=== PATIENT | male | born 1950 | race Caucasian/White ===

== ENCOUNTER 2017-03-04 10:04 | Day surgery (SDC) | payer OTHER ==
--- NOTE | 2017-03-03 12:27 | PREOPHP ---
DATE OF ADMISSION: 03/04/2017 HISTORY OF PRESENT ILLNESS: A 66-year-old male patient initially seen in this office in 06/2015, a long history of heavy smoking and hoarseness, was noted to have a possible laryngeal tumor. 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 The patient was not considered a surgical candidate and was treated with chemotherapy and radiation therapy with good results. He h as been followed periodically. A possible recurrence of carcinoma was noted in 08/2016 and a repeat direct microscopic laryngoscopy and biopsy were performed without evidence of recurrent cancer at t hat time. Intercurrently, the patient had a CAT scan of the larynx performed 11/2016 with poorly de fined soft tissue thickening involving the supraglottic larynx in the area of the left aryepiglottic fold and possible suspicion of diagnosis of recurrent carcinoma. Intercurrently, the patient was a lso seen and treated for a possible lung lesion. 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 The patient is now readmitted to the [facility] for repeat direct microscopic laryngoscopy and possible biopsy. ALLERGIES: PENICILLIN. DAILY MEDICATIONS: Metformin. MEDICAL CONDITIONS: Diabetes. PRIOR SURGERIES: See HPI. CLOTTING DISORDERS, FAMILY HISTORY, REVIEW OF SYSTEMS: Negative. HABITS: Alcohol: None currently. PHYSICAL EXAMINATION: GENERAL: This reveals a somewhat emaciated male patient in no acute distress. HEAD: Normocephalic. No masses or deformities. EARS AND TYMPANIC MEMBRANES: Normal. NOSE: Clear. OROPHARYNX: Dentition is in poor condition, and by endoscopic examination demonstrates thickening o f the left aryepiglottic fold. NECK: Clear. CHEST: Clear to P and A. HEART: Regular sinus rhythm without murmur. ABDOMEN: Soft, bowel sounds normal. No masses or megaly. EXTREMITIES: Full range of motion without deformity. NEUROLOGIC: Physiologic. RECTAL: Not done. IMPRESSION: Rule out laryngeal malignancy. RECOMMENDATIONS: Admit for direct microscopic laryngoscopy and biopsy. Dictated By: OMA CHRISTIE MD SC/NTS Conf#: [id number] DID#: [id number]
[~2017-03-04] VITALS: Ht 177.8 cm; Wt 61.1 kg
[2017-03-04] VITALS (11 sets, daily range): BP systolic 114–140; BP diastolic 73–87; PULSE 74–92; RESP 16–23; Ht 177.8 cm; Wt 61.1 kg
[~2017-03-04 10:04] MED LIST: INSULIN SC
[2017-03-04] MEDS ORDERED: INSU100C SQ (11:34)
[2017-03-04] MEDS ORDERED: TAMS-14 PO (11:35)
[2017-03-04] MEDS ORDERED: LANT3I SC (11:35)
[2017-03-04] MEDS ORDERED: HYDR-902 PO (11:37)
[2017-03-04] MEDS ORDERED: CARI350T29 PO (11:39)
[2017-03-04] MEDS ORDERED: COCAINE 4% 4 ML TOP ONE (11:50)
[2017-03-04] MEDS ORDERED: FENTAnyl 50 MCG/ML VIAL ONE (12:00)
[2017-03-04] MEDS ORDERED: MIDAZOLAM 1 MG/ML 2 ML INJ ONE (12:00)
[2017-03-04] MEDS ORDERED: ONDANSETRON 4 MG INJ ONE (12:30)
[2017-03-04] MEDS ORDERED: LIDOCAINE 2% (SDV) 5 ML INJ ONE (12:30)
[2017-03-04] MEDS ORDERED: ROCURONIUM 50 MG INJ ONE (12:30)
[2017-03-04] MEDS ORDERED: SUCCINYLCHOLINE CHLORIDE 100 MG/5 ML SYG IV ONE (12:30)
[2017-03-04] MEDS ORDERED: PROPOFOL 20 ML ONE (12:30)
[2017-03-04] MEDS ORDERED: MEPERIDINE 25 MG INJ IV PRN (13:00)
[2017-03-04] MEDS: FENTAnyl 50 MCG/ML VIAL IV PRN ×3 (13:00→13:31)
[2017-03-04] MEDS ORDERED: DIPHENHYDRAMINE 50 MG INJ IV PRN (13:00)
[2017-03-04] MEDS ORDERED: ONDANSETRON 4 MG INJ IV PRN (13:00)
[2017-03-04] MEDS ORDERED: HYDROCODONE/APAP (7.5/325) TAB PO PRN (13:30)
--- NOTE | 2017-03-12 10:22 | OPR ---
DATE OF OPERATION: 03/04/2017 PREOPERATIVE DIAGNOSIS: Rule out laryngeal cancer. POSTOPERATIVE DIAGNOSIS: Rule out laryngeal cancer. PROCEDURE PERFORMED: Direct microscopic laryngoscopy with biopsy. OPERATION: The patient was brought to the operating room under parenteral sedation, general oral en dotracheal anesthesia with the patient in the supine position. Sterile sheets and drapes were appli ed. Direct microscopic laryngoscopy was carried out with a Jako laryngoscope. Base of tongue, vall ecula, and postcricoid region were normal. There had been prior radiation therapy for laryngeal can cer, and there was considerable edema of the supraglottic laryngeal region. There was limitation of left vocal cord mobility. There was some thickening in the area of the left true vocal cord; howev er, no ulcerative lesions were taken. A biopsy was performed in this area. Likewise similar findin gs along the area of the right true vocal cord. Another biopsy was taken in this area. Five percen t cottonoid cocaine was then removed from the larynx. The operative field was dry. The patient was extubated, awakened in the operating room, and returned to recovery in excellent condition. ESTIMATED BLOOD LOSS: Nil. COMPLICATIONS: None. Dictated By: OMA CHRISTIE MD SC/NTS Conf#: [id number] DID#: [id number]
== END 2017-03-04 14:30 | disposition home or self-care (01) ==
LOC: SDS 10:04
PROVIDERS: ATTEND Otolaryngology Otolaryngology/Facial Plastic Surgery
DX: L83 Acanthosis nigricans (principal); R49.0 Dysphonia; F17.200 Nicotine dependence, unspecified, uncomplicated; E11.9 Type 2 diabetes mellitus without complications
CPT/HCPCS: 31536; 82962; 88305; J0330; J2250; J2405; J3010; Z7512; Z7610